=== PATIENT | female | born 1980 | race Caucasian/White ===

== ENCOUNTER 2017-03-28 18:33 | Emergency (ER) | payer OTHER ==
[~2017-03-28] VITALS: Ht 162.6 cm; Wt 84.8 kg
[~2017-03-28 18:33] MED LIST: FLUO40CA8 PO; PANT1TAB48 PO
[2017-03-28 18:45] VITALS: TEMP 37.1; Ht 162.6 cm; Wt 84.8 kg
[2017-03-28] MEDS ORDERED: NAPROXEN 250 MG TAB PO STA (19:58)
--- NOTE | 2017-03-28 20:03 | DIAGNOSTIC IMAGING REPORT ---
CHEST ONE VIEW PORTABLE CLINICAL HISTORY: Cough COMPARISON STUDY: 06/20/2016 FINDINGS: The cardiac and mediastinal contours are normal. There is no evidence of focal pulmonary consolidation. There is no evidence of failure. No pleural effusions are visualized.[ IMPRESSION: No active disease in the chest. Electronically signed by: Jared Betts M.D. 03/28/2017 8:02 PM Dictated Date/Time: 03/28/2017 8:01 PM
[2017-03-28] MEDS ORDERED: PRED50TA PO (20:26)
[2017-03-28] MEDS ORDERED: ALBUTEROL HFA 8 GM INHALER INH ONE (20:30)
[2017-03-28 20:54] VITALS: BP 140/96; PULSE 70; O2SAT 98
--- NOTE | 2017-03-29 01:32 | EMERGENCY ROOM VISIT NOTE ---
History Report prepared by Selin: Lavonne Jain Under the Supervision of: Dr. Braden Baires M.D. First contact with patient: 19:20 Chief Complaint: RASH Stated Complaint: RASH ON FACE AND BAD BACK PAIN History of Present Illness The patient is a 36 year old female who presents to the Emergency Room with complaints of a persistent rash to her face that began last evening. She currently rates her discomfort as a 9/10 in severity. The patient states that two days ago she developed upper and lower back pain and a cough. She states that 1 day ago she had diarrhea all day, but states that it has subsided. The patient states that last evening she went to [place] with her work. She states that she rode some small rides, but denies any extended exposure to the sun, hot tubs, or chemicals. The patient states that she is short of breath with exertion. She states that the rash feels like a burning pain and itchy. The patient denies using any new makeups, cleansers, or scrubs. 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 The patient denies ever having anything like this before. She states that she took Benadryl around 1200 without relief. Pt denies LOC, headache, fevers, chills, diaphoresis, visual changes, neck pain, chest pain, nausea, vomiting, abdominal pain, melena, hematochezia, urinary symptoms, numbness, weakness, lymphadenopathy, or other complaints. Source of History: patient Onset: last evening Position: other (face) Symptom Intensity: 9/10 Quality: burning, other (itchy rash) Timing: other (persistent) Associated Symptoms: + cough, + SOB, + back pain, + diarrhea Review of Systems See HPI for pertinent positives and negatives. A total of ten systems were reviewed and were otherwise negative. Past Medical & Surgical Medical Problems: (1) Back pain (2) Back pain (3) CALCULUS OF KIDNEY (4) delivery delivered (5) Chest pain (6) Chest pain (7) Deliveries by (8) Depression (9) ESOPHAGEAL REFLUX (10) Foot pain, right (11) Kidney stone (12) Left shoulder pain (13) Low back pain (14) Mid back pain (15) Migraine (16) MIGRAINE UNSPECIFIED W/O INTRACT MGRN W/O STATUS MIGRAINOSUS (17) Ovarian mass (18) Ovarian mass (19) Ovarian tumor (20) Right ovarian cyst (21) Right ovarian cyst (22) Right sided abdominal pain (23) Sinusitis (24) Sore throat (25) Vomiting Surgical Problems: (1) TUBAL LIGATION STATUS Family History Diabetes mellitus FHx: asthma FHx: cancer FHx: gallbladder disease FHx: heart disease FHx: lung disease Hypertension Kidney disease Kidney stones Social History Smoking Status: Current Every Day Smoker Alcohol Use: none Drug Use: none Marital Status: Housing Status: lives with family Occupation Status: employed Current/Historical Medications Scheduled Fluoxetine (Prozac), 40 MG PO DAILY Pantoprazole (Protonix), 40 MG PO DAILY Prednisone (Prednisone), 50 MG PO DAILY Allergies Coded Allergies: Iodinated Contrast Media (Verified Allergy, Mild, ITCHY, 03/28/17) Physical Exam Vital Signs Date Time Temp Pulse Resp B/P (MAP) Pulse Ox O2 Delivery O2 Flow Rate FiO2 03/28/17 20:54 70 18 140/96 98 03/28/17 18:45 37.1 91 18 121/87 99 Room Air Physical Exam GENERAL: Awake, alert, well-appearing, in no distress HENT: Normocephalic, atraumatic. Oropharynx unremarkable. EYES: Normal conjunctiva. Sclera non-icteric. NECK: Supple. No nuchal rigidity. FROM. No JVD. RESPIRATORY: Clear to auscultation. CARDIAC: Regular rate, normal rhythm. Extremities warm and well perfused. Pulses equal. ABDOMEN: Soft, non-distended. No tenderness to palpation. No rebound or guarding. No masses. RECTAL: Deferred. MUSCULOSKELETAL: Chest examination reveals no tenderness. The back is symmetrical on inspection without obvious abnormality. Diffuse paraspinal tenderness. There is no CVA tenderness to palpation. No joint edema. LOWER EXTREMITIES: Calves are equal size bilaterally and non-tender. No edema. No discoloration. NEURO: Normal sensorium. No sensory or motor deficits noted. SKIN: Small scattered papules on bilateral cheeks and forehead. No jaundice noted. Medical Decision & Procedures ER Provider Diagnostic Interpretation: X-ray: Per my interpretation, radiologist review. CHEST ONE VIEW PORTABLE CLINICAL HISTORY: Cough COMPARISON STUDY: 06/20/2016 FINDINGS: The cardiac and mediastinal contours are normal. There is no evidence of focal pulmonary consolidation. There is no evidence of failure. No pleural effusions are visualized.[ IMPRESSION: No active disease in the chest. Electronically signed by: Jared Betts M.D. 03/28/2017 8:02 PM Dictated Date/Time: 03/28/2017 8:01 PM Medications Administered Medications (Trade) Dose Ordered Sig/Mateo Route Start Time Stop Time Status Last Admin Dose Admin Naproxen (Naprosyn Tab) 500 mg NOW STAT PO 03/28/17 19:58 03/28/17 19:59 DC 03/28/17 20:21 500 MG Albuterol (Ventolin Hfa Inhaler) 2 puffs NOW ONCE INH 03/28/17 20:30 03/28/17 20:31 DC 03/28/17 20:51 2 PUFFS Prednisone (PredniSONE TAB) 60 mg NOW STAT PO 03/28/17 20:25 03/28/17 20:26 DC 03/28/17 20:50 60 MG ED Course 1942: The patient was evaluated in room B7. A complete history and physical exam was performed. 1957: Ordered Naproxen 500 mg PO. 2024: Ordered Prednisone 60 mg PO. 2029: Ordered Albuterol 2 puffs INH. 2030: I reevaluated the patient and she is resting comfortably. I discussed the exam findings with her and I discussed the treatment plan. She verbalized complete understanding and agreement. She is ready to go home. Medical Decision Medication Reconciliation: I attest that I have personally reviewed the patient' s current medication list Patient was found to have a slightly elevated blood pressure due to circumstances. I do not believe that the patient requires hypertension monitoring. Triage Nursing notes reviewed. The patient's presentation and history were concerning for rash, cough, diarrhea , and back pain. Etiologies such as contact dermatitis, allergic reaction, musculoskeletal, metabolic, infection, hypo/hyperglycemia, electrolyte abnormalities, cardiac sources, toxicologic, neurologic, as well as others were entertained. The patient had a non-focal examination and was doing well. Oropharynx examination does not reveal any significant findings. There is no edema. The patient did have a slight papular rash noted on the face. There were no significant hives. She had some tender musculature in her back. She notes coughing. A chest x-ray was performed and this was negative. The patient was given a dose of prednisone and Naprosyn. She was also given an albuterol MDI. The patient does smoke. She was counseled to stop. She is going to be reestablishing primary care as her insurance had run out. I discussed minimizing further testing as she is doing very well at this time in order to minimize any coughs or her. The patient felt comfortable with this. I encouraged her to minimize any exposures to her face. She will rest. She will use the prednisone. She can use Tylenol or ibuprofen as needed. If she has any problems she will come back to the emergency department.I gave my usual and customary discussion regarding this issue. She will follow-up with her primary as soon as she clarifies her insurance issues. I suspect that she had a mild allergic reaction or dermatitis causing the rash and should respond well to prednisone. The back issues seem to be musculoskeletal. There is no indication for antibiotics based upon her chest x-ray. I gave my usual and customary discussion regarding this issue. By the evaluation outlined above other emergent etiologies such as those listed in the differential, as well as others, were deemed relatively unlikely. The patient was educated about the findings as listed above. All questions were answered and the patient was pleased with the treatment. Return instructions were outlined and the patient was discharged in stable condition. The patient was referred to her primary care for follow-up for a recheck of the current condition. [place] Drug Monitoring Program Search Results: patient reviewed within database, no issues identified Impression Primary Impression: Rash Additional Impressions: Cough Back pain Scribe Attestation The scribe's documentation has been prepared under my direction and personally reviewed by me in its entirety. I confirm that the note above accurately reflects all work, treatment, procedures, and medical decision making performed by me. Departure Information Dispostion Home / Self-Care Prescriptions Prednisone (Prednisone) 50 Mg Tab 50 MG PO DAILY for 4 Days, #4 TAB Prov: Braden Baires MD 03/28/17 Forms HOME CARE DOCUMENTATION FORM, IMPORTANT VISIT INFORMATION, WORK / SCHOOL INSTRUCTIONS Patient Instructions My [facility] Additional Instructions Diphenhydramine: Use 25 to 50 mg every six hours for swelling, itching, or hives. This medication may cause sedation. Do not drive or perform dangerous activity if you are using this medication. Albuterol Inhaler: Take 2 puffs four times daily for five days, then as needed. Prednisone 50mg: Once daily until the prescription is finished. It is best to take this earlier in the day as some patients note occasional difficulty falling asleep when taken in the late evening. Acetaminophen(Tylenol) may be used for fever or pain. Use 1000mg every six hours as needed. Avoid using more than 4000mg in a 24 hour period. (AND/OR) Ibuprofen(Motrin, Advil) may be used for fever or pain. Use 600mg every six hours as needed. Take with food. Avoid using more than 2400mg in a 24 hour period. Do not use 2400mg per day for more than three consecutive days without physician direction. Prolonged inappropriate use can lead to stomach upset or ulcers. Rest and drink plenty of fluids. Avoid smoke/smoking, fumes, dust, or any triggers in the past that may have affected your breathing. Continue current medications. Return to the ER for chest pain, difficulty breathing, fevers, vomiting, worsening rash, blistering, severe back pain, numbness, tingling, loss of bowel or bladder control, worsening of your condition, or as needed. Follow up with a primary physician [facility] for a recheck of your current condition once your insurance issue clears. Problem Qualifiers
== END 2017-03-28 20:56 | disposition home or self-care (01) ==
LOC: C.EDB 18:34
DX: R21 Rash and other nonspecific skin eruption (principal); R05 Cough; M54.9 Dorsalgia, unspecified; K21.9 Gastro-esophageal reflux disease without esophagitis; F32.9 Major depressive disorder, single episode, unspecified; N83.201 Unspecified ovarian cyst, right side; F17.200 Nicotine dependence, unspecified, uncomplicated; Z87.442 Personal history of urinary calculi; Z86.19 Personal history of other infectious and parasitic diseases; Z98.51 Tubal ligation status; Z79.899 Other long term (current) drug therapy; Z91.041 Radiographic dye allergy status; Z83.3 Family history of diabetes mellitus; Z80.9 Family history of malignant neoplasm, unspecified; Z83.79 Family history of other diseases of the digestive system; Z82.49 Family history of ischemic heart disease and other diseases of the circulatory system; Z84.1 Family history of disorders of kidney and ureter

== ENCOUNTER 2017-09-12 18:27 | Emergency (ER) | payer SELFPAY ==
[~2017-09-12] VITALS: Ht 162.6 cm; Wt 86.0 kg
[~2017-09-12 18:27] MED LIST changes: -FLUO40CA8 PO; +PANT1TAB3 PO; -PANT1TAB48 PO
[2017-09-12 18:36] VITALS: TEMP 36.8; Ht 162.6 cm; Wt 86.0 kg
[2017-09-12] MEDS ORDERED: DiphenhydrAMINE HCL 50 MG/ML VIAL IV STA (19:52)
[2017-09-12] MEDS ORDERED: KETOROLAC TROMETHAMINE 30 MG/ML VIAL IV STA (19:52)
[2017-09-12] MEDS ORDERED: PROCHLORPERAZINE 5 MG/ML 2 ML VIAL IV STA (19:52)
[2017-09-12] MEDS ORDERED: DEXAMETHASONE INJ 10 MG in SYRINGE 0 ML IV ONE (20:00)
--- NOTE | 2017-09-12 20:31 | EMERGENCY ROOM VISIT NOTE ---
History Report prepared by Selin: Kenneth Barnard Under the Supervision of: Dr. Bart Valerio D.O. First contact with patient: 19:49 Chief Complaint: HEADACHE Stated Complaint: HEADACHE,PAIN IN NECK AND BACK History of Present Illness The patient is a 36 year old female who presents to the Emergency Room with complaints of a constant, severe headache beginning a week ago. The patient states she has a history of migraines. She reports she has tried Excedrin migraine, Tylenol, and ibuprofen for her discomfort, nothing is helping. The patient notes she has been nauseous, dizzy, and cold. She states her pain is in the front of her head and shoots to the back of her neck down through her back. The patient denies a runny nose and sorethroat. Source of History: patient Onset: week ago Position: head Symptom Intensity: severe Quality: ache Timing: constant Associated Symptoms: + neck pain, + nausea, + back pain, No sorethroat Note: Associated symptoms: dizziness and cold Denies: runny nose Review of Systems See HPI for pertinent positives & negatives. A total of 10 systems reviewed and were otherwise negative. Past Medical & Surgical Medical Problems: (1) Back pain (2) Back pain (3) CALCULUS OF KIDNEY (4) delivery delivered (5) Chest pain (6) Chest pain (7) Deliveries by (8) Depression (9) ESOPHAGEAL REFLUX (10) Foot pain, right (11) Kidney stone (12) Left shoulder pain (13) Low back pain (14) Mid back pain (15) Migraine (16) MIGRAINE UNSPECIFIED W/O INTRACT MGRN W/O STATUS MIGRAINOSUS (17) Ovarian mass (18) Ovarian mass (19) Ovarian tumor (20) Right ovarian cyst (21) Right ovarian cyst (22) Right sided abdominal pain (23) Sinusitis (24) Sore throat (25) Vomiting Surgical Problems: (1) TUBAL LIGATION STATUS Family History Diabetes mellitus FHx: asthma FHx: cancer FHx: gallbladder disease FHx: heart disease FHx: lung disease Hypertension Kidney disease Kidney stones Social History Smoking Status: Current Every Day Smoker Alcohol Use: none Drug Use: none Marital Status: Housing Status: lives with family Occupation Status: employed Current/Historical Medications Scheduled Fluoxetine (Prozac), 40 MG PO DAILY Pantoprazole (Protonix), 40 MG PO DAILY Allergies Coded Allergies: Iodinated Contrast Media (Verified Allergy, Mild, ITCHY, 03/28/17) Physical Exam Vital Signs Date Time Temp Pulse Resp B/P (MAP) Pulse Ox O2 Delivery O2 Flow Rate FiO2 09/12/17 18:36 36.8 83 20 128/84 98 Room Air Physical Exam CONSTITUTIONAL/VITAL SIGNS: Reviewed / noted above. GENERAL: Non-toxic in appearance. INTEGUMENTARY: Warm, dry, and [place]. HEAD: Normocephalic. EYES: without scleral icterus or trauma. ENT/OROPHARYNX: clear and moist. LYMPHADENOPATHY/NECK: Is supple without lymphadenopathy or meningismus. RESPIRATORY: Lungs clear and equal. CARDIOVASCULAR: Regular rate and rhythm. GI/ABDOMEN: Soft and nontender. No organomegaly or pulsatile mass. No rebound or guarding. Normal bowel sounds. EXTREMITIES: Warm and well perfused. BACK: No CVA tenderness. NEUROLOGICAL: Intact without focal deficits. PSYCHIATRIC: normal affect. MUSCULOSKELETAL: Normally developed with good muscle tone. Medical Decision & Procedures Medications Administered Medications (Trade) Dose Ordered Sig/Mateo Route Start Time Stop Time Status Last Admin Dose Admin Ketorolac Tromethamine (Toradol Inj) 30 mg NOW STAT IV 09/12/17 19:52 09/12/17 19:54 DC 09/12/17 20:19 30 MG Prochlorperazine Edisylate (Compazine Inj) 10 mg NOW STAT IV 09/12/17 19:52 09/12/17 19:54 DC 09/12/17 20:20 10 MG Diphenhydramine HCl (Benadryl Inj) 25 mg NOW STAT IV 09/12/17 19:52 09/12/17 19:55 DC 09/12/17 20:20 25 MG Dexamethasone Sodium Phosphate 10 mg/Syringe 2.5 ml @ 1 mls/min ONE ONCE IV 09/12/17 20:00 09/12/17 20:02 DC 09/12/17 20:20 1 MLS/MIN ED Course 1947: Previous medical records were reviewed. The patient was evaluated in room B07. A complete history and physical examination was performed. After the physical exam I discussed the results with the patient. I answered all of her question and discussed the treatment plan and discharge instructions. The patient agreed with the plan and will be discharged after she receives her medication. 1951: Ordered Benadryl Inj 25mg IV, Compazine inj 10mg IV, Toradol inj 30mg IV 1999: Ordered Dexamethasone Sodium Phosphate 10 mg/Syringe 2.5 ml @ 1mls/min IV Medical Decision Differential includes: Acute intracranial bleed, trauma, meningitis, encephalitis, increased intracranial pressure, mass or mass effect, facial or dental infection, temporal arteritis, CVA, TIA, acute hypertensive emergency, sinusitis, and carbon monoxide exposure. This is a 36-year-old female who presents to the ED with a chief complaint of a headache for the past week. It is frontal and posterior in nature. She reports a history of migraines and intermittent headaches. The patient states that she she tried Excedrin, Tylenol and Motrin without relief. She denies any upper respiratory symptoms or fevers. Denies any trauma. This is similar to prior headaches. Exam was unremarkable. The patient was treated with IV Benadryl, IV Decadron, IV Toradol and IV Compazine. She is felt to be stable for discharge and outpatient follow-up. Impression Primary Impression: Headache Scribe Attestation The scribe's documentation has been prepared under my direction and personally reviewed by me in its entirety. I confirm that the note above accurately reflects all work, treatment, procedures, and medical decision making performed by me. Departure Information Dispostion Home / Self-Care Referrals No Doctor, Assigned (PCP) Forms HOME CARE DOCUMENTATION FORM, IMPORTANT VISIT INFORMATION, Work Instructions Return To Work: 1 day Specific Date: 09/14/17 Patient Instructions My [facility] Additional Instructions Follow-up with your doctor for further care and evaluation in 1-2 days. Return to the emergency department for worsening or new symptoms or any concerns. You have been examined and treated today on an emergency basis only. This is not a substitute for, or an effort to provide, complete comprehensive medical care. It is impossible to recognize and treat all injuries or illnesses in a single emergency department visit. It is therefore important that you follow up closely with your doctor. Call as soon as possible for an appointment.
[2017-09-12 21:00] VITALS: BP 124/70; PULSE 74; O2SAT 97
[2017-09-12] MEDS ORDERED: FLUO40CA8 PO (22:32)
== END 2017-09-12 21:24 | disposition home or self-care (01) ==
LOC: C.EDB 18:28
DX: R51 Headache (principal); Z87.442 Personal history of urinary calculi; F32.9 Major depressive disorder, single episode, unspecified; K21.9 Gastro-esophageal reflux disease without esophagitis; Z83.3 Family history of diabetes mellitus; Z80.9 Family history of malignant neoplasm, unspecified; Z83.79 Family history of other diseases of the digestive system; Z82.49 Family history of ischemic heart disease and other diseases of the circulatory system; Z84.1 Family history of disorders of kidney and ureter; F17.210 Nicotine dependence, cigarettes, uncomplicated; Z79.899 Other long term (current) drug therapy

== ENCOUNTER 2017-10-12 22:08 | Emergency (ER) | payer OTHER ==
[~2017-10-12] VITALS: Ht 162.6 cm; Wt 87.8 kg
[~2017-10-12 22:08] MED LIST changes: +FLUO40CA8 PO
[2017-10-12 22:12] VITALS: TEMP 36.6; Ht 162.6 cm; Wt 87.8 kg
[2017-10-12] MEDS ORDERED: DiphenhydrAMINE HCL 50 MG/ML VIAL IV STA (23:16)
[2017-10-12] MEDS ORDERED: KETOROLAC TROMETHAMINE 30 MG/ML VIAL IV STA (23:16)
[2017-10-12] MEDS ORDERED: ONDANSETRON INJ 2 MG/ML 2 ML VIAL IV STA (23:16)
--- NOTE | 2017-10-12 23:22 | EMERGENCY ROOM VISIT NOTE ---
History Report prepared by Selin: Shahriar Martinez Under the Supervision of: Dr. Isiah Meneses M.D. First contact with patient: 23:11 Chief Complaint: ABDOMINAL PAIN Stated Complaint: PAIN IN STOMACH Nursing Triage Summary: generalized abodminal pain with vomiting. for the last hour. pain intesified after vomiting History of Present Illness The patient is a 36 year old female who presents to the Emergency Room with complaints of constant, sharp abdominal pain beginning 2 hours ago. The patient states that her vomit was brown this evening when she threw up, and that it tasted like acid. She notes that she did not eat anything tonight and that there is currently nothing in her stomach. She reports that her abdominal pain radiates to her back. The patient states that her symptoms might have been brought on by stress because she recently found out that her brother was put into correction. She notes that she has a history of kidney stones and has had a hysterectomy, but does not have any history of stomach ulcers. She reports that she does not pay attention to whether or not she has abdominal pain after she eats. She denies any rash, medication use, and alcohol use. Source of History: patient Onset: 2 hours ago Position: abdomen Quality: sharp Timing: constant Associated Symptoms: + vomiting (tasted like acid), + back pain, No rash Note: She also complains of high stress. Review of Systems See HPI for pertinent positives & negatives. A total of 10 systems reviewed and were otherwise negative. Past Medical & Surgical Medical Problems: (1) Back pain (2) Back pain (3) CALCULUS OF KIDNEY (4) delivery delivered (5) Chest pain (6) Chest pain (7) Deliveries by (8) Depression (9) ESOPHAGEAL REFLUX (10) Foot pain, right (11) Kidney stone (12) Left shoulder pain (13) Low back pain (14) Mid back pain (15) Migraine (16) MIGRAINE UNSPECIFIED W/O INTRACT MGRN W/O STATUS MIGRAINOSUS (17) Ovarian mass (18) Ovarian mass (19) Ovarian tumor (20) Right ovarian cyst (21) Right ovarian cyst (22) Right sided abdominal pain (23) Sinusitis (24) Sore throat (25) Vomiting Surgical Problems: (1) H/O: hysterectomy (2) TUBAL LIGATION STATUS Family History Diabetes mellitus FHx: asthma FHx: cancer FHx: gallbladder disease FHx: heart disease FHx: lung disease Hypertension Kidney disease Kidney stones Social History Smoking Status: Never Smoker Alcohol Use: none Drug Use: none Marital Status: Housing Status: lives with family Occupation Status: employed Current/Historical Medications Scheduled Fluoxetine (Prozac), 40 MG PO DAILY Pantoprazole (Protonix), 40 MG PO DAILY Allergies Coded Allergies: Iodinated Contrast Media (Verified Allergy, Mild, ITCHY, 10/13/17) Physical Exam Vital Signs Date Time Temp Pulse Resp B/P (MAP) Pulse Ox O2 Delivery O2 Flow Rate FiO2 10/13/17 02:00 80 17 130/77 96 10/13/17 00:28 78 16 145/82 100 Room Air 10/12/17 23:05 71 16 142/83 100 Room Air 10/12/17 22:12 36.6 75 20 143/100 97 Room Air Physical Exam GENERAL: Patient is anxious appearing and in mild distress. HEENT: No acute trauma, normocephalic atraumatic, mucous membranes moist, no nasal congestion, no scleral icterus. NECK: No stridor, no adenopathy, no meningismus, trachea is midline. LUNGS: No dyspnea. Clear to auscultation and equal bilaterally. No wheeze, no rhonchi. HEART: Regular rate and rhythm. No murmurs, rubs, gallops appreciated. ABDOMEN: Soft, bowel sounds positive, no masses appreciated, no peritonitis. Epigastric tenderness to palpation. BACK: No midline tenderness, no CVA tenderness EXTREMITIES: Normal motion all extremities, no cyanosis, no edema. NEUROLOGIC: Alert and oriented, no acute motor or sensory deficits, no focal weakness, cranial nerves grossly intact. SKIN: No rash, no jaundice, no diaphoresis. Medical Decision & Procedures ER Provider Diagnostic Interpretation: Radiology results and stated below per my review and radiologist interpretation: US RUQ: Mild sludge within the gallbladder. No shadowing gallstone seen. No evidence of GB wall thickening or pericholecystic fluid. Sonographic Bonds sign is negative. No biliary dilation. Liver, right kidney and visualized pancreas are unremarkable. No free fluid. Radiologist: Isiah Rosas MD. Laboratory Results 10/12/17 23:25 Red Blood Count 4.55, Mean Corpuscular Volume 91.0, Mean Corpuscular Hemoglobin 31.9, Mean Corpuscular Hemoglobin Concent 35.0, Mean Platelet Volume 11.6, Neutrophils (%) (Auto) 61.8, Lymphocytes (%) (Auto) 29.2, Monocytes (%) (Auto) 6.5, Eosinophils (%) (Auto) 2.1, Basophils (%) (Auto) 0.2, Neutrophils # (Auto) 6.51, Lymphocytes # (Auto) 3.08, Monocytes # (Auto) 0.69, Eosinophils # (Auto) 0.22, Basophils # (Auto) 0.02 10/12/17 23:25 Test 10/12/17 23:00 10/12/17 23:25 Urine Color YELLOW Urine Appearance CLEAR (CLEAR) Urine pH 5.0 (4.5-7.5) Urine Specific [place] 1.023 (1.000-1.030) Urine Protein NEG (NEG) Urine Glucose (UA) NEG (NEG) Urine Ketones NEG (NEG) Urine Occult Blood NEG (NEG) Urine Nitrite NEG (NEG) Urine Bilirubin NEG (NEG) Urine Urobilinogen NEG (NEG) Urine Leukocyte Esterase NEG (NEG) Urine WBC (Auto) 1-5 /hpf (0-5) Urine RBC (Auto) 5-10 /hpf (0-4) Urine Hyaline Casts (Auto) 0 /lpf (0-5) Urine Epithelial Cells (Auto) >30 /lpf (0-5) Urine Bacteria (Auto) NEG (NEG) White Blood Count 10.54 K/uL (4.8-10.8) Red Blood Count 4.55 M/uL (4.2-5.4) Hemoglobin 14.5 g/dL (12.0-16.0) Hematocrit 41.4 % (37-47) Mean Corpuscular Volume 91.0 fL (80-100) Mean Corpuscular Hemoglobin 31.9 pg (25-34) Mean Corpuscular Hemoglobin Concent 35.0 g/dl (32-36) Platelet Count 287 K/uL (130-400) Mean Platelet Volume 11.6 fL (7.4-10.4) Neutrophils (%) (Auto) 61.8 % Lymphocytes (%) (Auto) 29.2 % Monocytes (%) (Auto) 6.5 % Eosinophils (%) (Auto) 2.1 % Basophils (%) (Auto) 0.2 % Neutrophils # (Auto) 6.51 K/uL (1.4-6.5) Lymphocytes # (Auto) 3.08 K/uL (1.2-3.4) Monocytes # (Auto) 0.69 K/uL (0.11-0.59) Eosinophils # (Auto) 0.22 K/uL (0-0.5) Basophils # (Auto) 0.02 K/uL (0-0.2) RDW Standard Deviation 41.7 fL (36.4-46.3) RDW Coefficient of Variation 12.5 % (11.5-14.5) Immature Granulocyte % (Auto) 0.2 % Immature Granulocyte # (Auto) 0.02 K/uL (0.00-0.02) Anion Gap 8.0 mmol/L (3-11) Est Creatinine Clear Calc Drug Dose 91.7 ml/min Estimated GFR () 94.1 Estimated GFR (Non- 81.2 BUN/Creatinine Ratio 22.3 (10-20) Calcium Level 9.6 mg/dl (8.5-10.1) Total Bilirubin 0.2 mg/dl (0.2-1) Direct Bilirubin < 0.1 mg/dl (0-0.2) Aspartate Amino Transf (AST/SGOT) 14 U/L (15-37) Alanine Aminotransferase (ALT/SGPT) 32 U/L (12-78) Alkaline Phosphatase 92 U/L (45-117) Total Protein 7.7 gm/dl (6.4-8.2) Albumin 4.2 gm/dl (3.4-5.0) Lipase 216 U/L (73-393) Laboratory results as reviewed by me. Medications Administered Medications (Trade) Dose Ordered Sig/Mateo Route Start Time Stop Time Status Last Admin Dose Admin Diphenhydramine HCl (Benadryl Inj) 50 mg NOW STAT IV 10/12/17 23:16 10/12/17 23:18 DC 10/12/17 23:33 50 MG Ondansetron HCl (Zofran Inj) 4 mg NOW STAT IV 10/12/17 23:16 10/12/17 23:18 DC 10/12/17 23:33 4 MG Ketorolac Tromethamine (Toradol Inj) 30 mg NOW STAT IV 10/12/17 23:16 10/12/17 23:18 DC 10/12/17 23:33 30 MG Prochlorperazine Edisylate (Compazine Inj) 10 mg NOW STAT IV 10/13/17 00:32 10/13/17 00:33 DC 10/13/17 00:38 10 MG Sodium Chloride 500 ml @ 999 mls/hr Q31M STAT IV 10/13/17 00:32 10/13/17 01:02 DC 10/13/17 00:39 999 MLS/HR Al Hydroxide/Mg Hydroxide (Maalox Susp) 30 ml STK-MED ONCE .ROUTE 10/13/17 00:37 10/13/17 00:38 DC 10/13/17 00:39 30 ML Lidocaine HCl (Viscous Lidocaine 2% Soln) 20 ml STK-MED ONCE .ROUTE 10/13/17 00:37 10/13/17 00:38 DC 10/13/17 01:34 20 ML ED Course 2311: The patient was evaluated in room A12. A complete history and physical exam was performed. 0035: I reevaluated and updated the patient. She is still uncomfortable. We discussed CT, but the patient will prefer to try medication first. 0147: I rechecked the patient. She feels much better and would like to go home. 0214: Reevaluated the patient. Discussed results and discharge instructions: she verbalized understanding and agreement. The patient is ready for discharge. Medical Decision Differential: Cholecystitis, Gallbladder disfunction, Hepatic Disfunction, Gastritis/PUD, Pancreatitis, ACS, Aortic Pathology, amongst other pathologies entertained. 36 yr old female arrives with epigastric discomfort and nausea. Seems she had significant anxiety attack earlier in the evening which has improved but now with abdo pain. Abdomen is pretty benign but given description went ahead GB US which was unremarkable, as was lab work up. Pain controlled with above and feeling well. Declines CT at this time. Advised return 12-24 hours if returning pain or other concerns, earlier if worsening. Stable and feeling well at discharge. Medication Reconcilliation Current Medication List: was personally reviewed by me Blood Pressure Screening Patient's blood pressure: Normal blood pressure Blood pressure disposition: Did not require urgent referral Impression Primary Impression: Abdominal pain, acute, epigastric Scribe Attestation The scribe's documentation has been prepared under my direction and personally reviewed by me in its entirety. I confirm that the note above accurately reflects all work, treatment, procedures, and medical decision making performed by me. Departure Information Dispostion Home / Self-Care Referrals No Doctor, Assigned (PCP) Forms Call Back Authorization, HOME CARE DOCUMENTATION FORM, IMPORTANT VISIT INFORMATION Patient Instructions ED Epigastric Pain Patricia MCDANIEL [facility]
[2017-10-12 23:36] LABS: BASO % 0.2 %; BASO ABS # 0.02 K/uL (0-0.2); EOS % 2.1 %; EOS ABS # 0.22 K/uL (0-0.5); HEMATOCRIT 41.4 % (37-47); HEMOGLOBIN 14.5 g/dL (12.0-16.0); IG# 0.02 K/uL (0.00-0.02); LYMPH % 29.2 %; LYMPH ABS # 3.08 K/uL (1.2-3.4); MEAN CORPUSCULAR HEMOGLOBIN 31.9 pg (25-34); MEAN PLATELET VOLUME 11.6 fL (7.4-10.4); MONO % 6.5 %; MONO ABS # 0.69 K/uL (0.11-0.59); NEUT % 61.8 %; NEUT ABS # 6.51 K/uL (1.4-6.5); PLATELET COUNT 287 K/uL (130-400); RED CELL DISTRIBUTION WIDTH CV 12.5 % (11.5-14.5); RED CELL DISTRIBUTION WIDTH SD 41.7 fL (36.4-46.3); WHITE BLOOD COUNT 10.54 K/uL (4.8-10.8)
[2017-10-13 00:10] LABS: ALBUMIN 4.2 gm/dl (3.4-5.0); ALT/SGPT 32 U/L (12-78); AST/SGOT 14 U/L (15-37); BLOOD UREA NITROGEN 20 mg/dl (7-18); CALCIUM 9.6 mg/dl (8.5-10.1); CARBON DIOXIDE 22 mmol/L (21-32); CREATININE 0.91 mg/dl (0.60-1.20); GLUCOSE 89 mg/dl (70-99); LIPASE 216 U/L (73-393); POTASSIUM 3.8 mmol/L (3.5-5.1); SODIUM 137 mmol/L (136-145)
[2017-10-13 00:13] LABS: ALKALINE PHOSPHATASE 92 U/L (45-117); TOTAL PROTEIN 7.7 gm/dl (6.4-8.2)
[2017-10-13] MEDS ORDERED: GI COCKTAIL PO STA (00:32)
[2017-10-13] MEDS ORDERED: PROCHLORPERAZINE 5 MG/ML 2 ML VIAL IV STA (00:32)
[2017-10-13] MEDS ORDERED: SODIUM CHLORIDE 0.9% 500ML 500 ML IV STA (00:32)
[2017-10-13] MEDS ORDERED: ALUMINUM/MAGNESIUM SUSP 30 ML UDC ONE (00:37)
[2017-10-13] MEDS ORDERED: LIDOCAINE HCL 2% VISC SOLN 20 ML UDC ONE (00:37)
[2017-10-13 02:00] VITALS: BP 130/77; PULSE 80; O2SAT 96
--- NOTE | 2017-10-13 07:19 | DIAGNOSTIC IMAGING REPORT ---
ABDOMINAL ULTRASOUND, RIGHT UPPER QUADRANT HISTORY: Epigastric abdominal pain. COMPARISON: Right upper quadrant ultrasound December 03, [address] of the abdomen and pelvis November 04, 2015. FINDINGS: Liver is sonographically normal. There is no biliary ductal dilatation. No gallstones are identified. There is no gallbladder wall thickening. There is a small amount of sludge within the gallbladder. There was no sonographic Bonds's sign. Pancreatic body and head are normal. The pancreatic tail is obscured by overlying bowel gas. There is no right hydronephrosis. IMPRESSION: 1. No gallstones or biliary ductal dilatation. 2. Small amount of sludge within the gallbladder. No gallbladder wall thickening. Electronically signed by: Johnny Ness M.D. 10/13/2017 7:17 AM Dictated Date/Time: 10/13/2017 7:07 AM
== END 2017-10-13 02:00 | disposition home or self-care (01) ==
LOC: C.EDB 22:09 → C.EDA 10-13 02:00
DX: R10.13 Epigastric pain (principal); F32.9 Major depressive disorder, single episode, unspecified; K21.9 Gastro-esophageal reflux disease without esophagitis; Z83.3 Family history of diabetes mellitus; Z82.49 Family history of ischemic heart disease and other diseases of the circulatory system; Z82.5 Family history of asthma and other chronic lower respiratory diseases

== ENCOUNTER 2020-03-06 12:03 | Observation (INO) ==
[2020-03-06] MEDS ORDERED: SODIUM CHLORIDE 0.9% 1000ML 1,000 ML IV ONE (13:13)
[2020-03-06] MEDS ORDERED: SODIUM CHLORIDE 0.9% 1000ML 1,000 ML IV SCH (13:15)
--- NOTE | 2020-03-06 13:18 | Emergency Department Note ---
History of Present Illness General Chief complaint: Syncope Stated complaint: syncope, sent by urgent care Time Seen by Provider: 03/06/20 13:01 Source: patient Mode of arrival: ambulatory Limitations: no limitations History of Present Illness Maximum Pain Intensity: 5 This patient comes in after having lightheadedness dizziness and syncopal episodes. She had an episode in October of a similar complaint was seen in [place] had extensive work-up at hospital there was told that she had a inner ear infection. Starting 5 days ago the symptoms recurred she gets about 4 5 times a day she says the ears start burning and she feels dizzy and then she briefly passes out. No chest pain, shortness of breath, or palpitations. No nausea or vomiting. No focal numbness weakness. No fever or chills. Denies p regnancy as she has had a hysterectomy. No back pain. No dysuria or hematuria. No exposure to COVID or COVID-like symptoms known. Specifically denies fever or chills, change in taste or smell, cough or respiratory symptoms. She does have a mild left-sided headache this been persistent for 5 days and 6 out of 10. No blood or melena in her stool. She was seen in urgent care and they sent her here for further evaluation. Home Medications Home Medications Medication Instructions Recorded Confirmed Type azelastine 1 spray INTRANASAL BID 03/06/20 03/06/20 History dicyclomine 20 mg PO QID 03/06/20 03/06/20 History duloxetine 60 mg PO DAILY 03/06/20 03/06/20 History fluticasone propionate [Flonase 2 spray INTRANASAL DAILY 03/06/20 03/06/20 History Allergy Relief] loratadine [Claritin] 10 mg PO DAILY 03/06/20 03/06/20 History montelukast 10 mg PO DAILY 03/06/20 03/06/20 History nortriptyline 10 mg PO HS 03/06/20 03/06/20 History pantoprazole 40 mg PO DAILY 03/06/20 03/06/20 History trazodone 100 mg PO HS 03/06/20 03/06/20 History Allergies Allergy/AdvReac Type Severity Reaction Status Date / Time Iodinated Contrast Media Allergy Mild Hives Verified 03/06/20 14:22 Past Med/Surg History Medical History Anxiety Depression Kidney stones Migraine headache Ovarian tumor (Resolved 04/28/14) Tobacco use disorder Surgical History Delivery by section H/O: hysterectomy (Inactive) Right ovarian cyst (Resolved) Family History Other Myocardial infarction Social History Preferred Language: Tajik Communication Ability: Effective Visual Impairment: No Limitations Hearing Ability: Normal Digital Media Buyer Required: No Beliefs That Will Affect Care: None Current Living Situation: Family Other Information That Helps Us Care for You: No Feels Safe at Home: Yes Safety Concerns: Feels Safe At This Time Smoking Status: Current every day smoker Tobacco Type: cigarettes ; Do You Dip or Chew Tobacco: No ; Tobacco Cessation Education Requested by Patient: No Hx Alcohol Use: No Hx Substance Use: No Review of Systems A total of 10 systems reviewed and were otherwise negative Physical Exam Vital Signs Vital Signs - 24 hr 03/06/20 12:05 03/06/20 13:43 03/06/20 13:49 Temperature 37 C Temperature Source Oral Pulse Rate - Lying Pulse Rate - Sitting Pulse Rate - Standing Pulse Rate 90 Pulse Rate [Finger] 74 Pulse Rate from SpO2 Sensor 73 Pulse Rhythm Regular Pulse Strength Normal Respiratory Rate 18 18 Respiratory Effort / Characteristics Non-Labored Spontaneous Non-Labored Spontaneous Respiratory Depth Normal Normal Respiratory Pattern Regular Regular Blood Pressure - Lying Blood Pressure - Sitting Blood Pressure- Standing Blood Pressure 133/86 124/84 Blood Pressure [Left Arm] 124/84 Blood Pressure Mean 101 98 Blood Pressure Mean [Left Arm] 97 Blood Pressure Position Sitting Blood Pressure Position [Left Arm] Sitting Pulse Oximetry 100 99 99 Oxygen Delivery Method Room Air Room Air Sepsis Recent Fever Within 48 Hours No Sepsis New/Unexplained Change in Mental Status No Sepsis Action Taken by Nursing No Action Required 03/06/20 13:50 03/06/20 14:00 03/06/20 14:10 Temperature Temperature Source Pulse Rate - Lying Pulse Rate - Sitting Pulse Rate - Standing Pulse Rate Pulse Rate [Finger] Pulse Rate from SpO2 Sensor 73 71 70 Pulse Rhythm Pulse Strength Respiratory Rate Respiratory Effort / Characteristics Respiratory Depth Respiratory Pattern Blood Pressure - Lying Blood Pressure - Sitting Blood Pressure- Standing Blood Pressure Blood Pressure [Left Arm] Blood Pressure Mean Blood Pressure Mean [Left Arm] Blood Pressure Position Blood Pressure Position [Left Arm] Pulse Oximetry 100 100 100 Oxygen Delivery Method Sepsis Recent Fever Within 48 Hours Sepsis New/Unexplained Change in Mental Status Sepsis Action Taken by Nursing 03/06/20 14:20 03/06/20 14:26 03/06/20 14:27 Temperature Temperature Source Pulse Rate - Lying 64 Pulse Rate - Sitting 71 Pulse Rate - Standing 72 Pulse Rate Pulse Rate [Finger] Pulse Rate from SpO2 Sensor 71 63 Pulse Rhythm Pulse Strength Respiratory Rate Respiratory Effort / Characteristics Respiratory Depth Respiratory Pattern Blood Pressure - Lying 147/85 H Blood Pressure - Sitting 132/102 H Blood Pressure- Standing 123/90 Blood Pressure 147/85 H Blood Pressure [Left Arm] Blood Pressure Mean 95 Blood Pressure Mean [Left Arm] Blood Pressure Position Blood Pressure Position [Left Arm] Pulse Oximetry 100 100 Oxygen Delivery Method Sepsis Recent Fever Within 48 Hours Sepsis New/Unexplained Change in Mental Status Sepsis Action Taken by Nursing 03/06/20 14:28 03/06/20 14:29 03/06/20 14:30 Temperature Temperature Source Pulse Rate - Lying Pulse Rate - Sitting Pulse Rate - Standing Pulse Rate Pulse Rate [Finger] Pulse Rate from SpO2 Sensor 74 73 72 Pulse Rhythm Pulse Strength Respiratory Rate Respiratory Effort / Characteristics Respiratory Depth Respiratory Pattern Blood Pressure - Lying Blood Pressure - Sitting Blood Pressure- Standing Blood Pressure 123/90 Blood Pressure [Left Arm] Blood Pressure Mean 101 Blood Pressure Mean [Left Arm] Blood Pressure Position Blood Pressure Position [Left Arm] Pulse Oximetry 100 100 100 Oxygen Delivery Method Sepsis Recent Fever Within 48 Hours Sepsis New/Unexplained Change in Mental Status Sepsis Action Taken by Nursing 03/06/20 15:16 03/06/20 15:18 03/06/20 15:19 Temperature Temperature Source Pulse Rate - Lying Pulse Rate - Sitting Pulse Rate - Standing Pulse Rate 71 69 69 Pulse Rate [Finger] Pulse Rate from SpO2 Sensor 71 69 70 Pulse Rhythm Pulse Strength Respiratory Rate 13 15 20 Respiratory Effort / Characteristics Respiratory Depth Respiratory Pattern Blood Pressure - Lying Blood Pressure - Sitting Blood Pressure- Standing Blood Pressure Blood Pressure [Left Arm] Blood Pressure Mean Blood Pressure Mean [Left Arm] Blood Pressure Position Blood Pressure Position [Left Arm] Pulse Oximetry 99 100 100 Oxygen Delivery Method Sepsis Recent Fever Within 48 Hours Sepsis New/Unexplained Change in Mental Status Sepsis Action Taken by Nursing 03/06/20 15:20 03/06/20 15:30 03/06/20 15:40 Temperature Temperature Source Pulse Rate - Lying Pulse Rate - Sitting Pulse Rate - Standing Pulse Rate 66 74 60 Pulse Rate [Finger] Pulse Rate from SpO2 Sensor 67 70 60 Pulse Rhythm Pulse Strength Respiratory Rate 15 28 H 13 Respiratory Effort / Characteristics Respiratory Depth Respiratory Pattern Blood Pressure - Lying Blood Pressure - Sitting Blood Pressure- Standing Blood Pressure Blood Pressure [Left Arm] Blood Pressure Mean Blood Pressure Mean [Left Arm] Blood Pressure Position Blood Pressure Position [Left Arm] Pulse Oximetry 100 100 100 Oxygen Delivery Method Sepsis Recent Fever Within 48 Hours Sepsis New/Unexplained Change in Mental Status Sepsis Action Taken by Nursing General: Well developed well nourished not ill-appearing nontoxic young female who appears in no acute distress, breathing comfortably on room air. Normal speech. Alert and orient x3 HEENT: Normal cephalic atraumatic. Pupils are equal round and reactive to light. Extraocular movements are intact. Oropharynx is pink with moist mucous membranes. No swelling of the mouth lips or tongue. Normal tympanic membranes bilaterally without effusions. Normal ear canals bilaterally Neck: Supple with a midline trachea. No meningeal signs or stiffness, no JVD or bruits. No Stridor. Chest: Clear to auscultation bilaterally. No wheezes or rhonchi. No increased work of breathing. Heart: Regular rate and rhythm without murmurs or gallops. Abdomen: Soft nontender, nondistended without rebound guarding or rigidity. Extremities: No cyanosis clubbing or edema. No calf tenderness or assymetry Spine/Back. Non tender to palpation. No CVA tenderness Skin: Good turgor without rashes. Neurologic exam: Cranial nerves two through 12 are intact. Motor and sensation are intact and symmetrical throughout. [id number] intact. No pronator drift. No tremor. Course Administered Medications Acetaminophen (Tylenol) 650 mg PO Q4H PRN PRN Reason: Pain or Fever Stop: 04/05/20 16:54 Last Admin: 03/06/20 18:13 Dose: 650 mg Documented by: [id number] Dicyclomine HCl (Bentyl) 20 mg PO QID NORA Stop: 04/05/20 16:59 Last Admin: 03/06/20 19:56 Dose: 20 mg Documented by: [id number] Admin: 03/06/20 18:13 Dose: 20 mg Documented by: [id number] Nicotine (Nicoderm Cq) 7 mg TD QAM NORA Stop: 04/05/20 16:54 Last Admin: 03/06/20 18:12 Dose: 7 mg Documented by: [id number] Trazodone HCl (Desyrel) 100 mg PO HS NORA Stop: 04/05/20 20:59 Last Admin: 03/06/20 19:56 Dose: 100 mg Documented by: [id number] Discontinued Medications Sodium Chloride (Nss 1000ml) 1,000 mls @ 999 mls/hr IV .Q1H1M NORA Stop: 03/06/20 14:15 Last Infusion: 03/06/20 16:41 Dose: 0 mls/hr Documented by: [id number] Admin: 03/06/20 13:50 Dose: 999 mls/hr Documented by: [id number] Sodium Chloride (Nss 1000ml) 1,000 mls @ 999 mls/hr IV .Q1H1M ONE Stop: 03/06/20 14:13 Last Infusion: 03/06/20 14:58 Dose: 0 mls/hr Documented by: [id number] Admin: 03/06/20 13:50 Dose: 999 mls/hr Documented by: [id number] Ketorolac Tromethamine (Toradol) 30 mg IV NOW ONE Stop: 03/06/20 14:21 Last Admin: 03/06/20 14:31 Dose: 30 mg Documented by: [id number] Medical Decision Making Differential Diagnosis Syncope, arrhythmia, electrolyte or metabolic abnormality, dehydration, infection, COVID, intracranial process, vascular disease Medical Records Attestation: I reviewed the patient's medical records. Laboratory Data Attestation: I reviewed the patient's lab results. Result diagrams: 03/06/20 13:20 03/06/20 13:20 Lab Results 03/06/20 03/06/20 03/06/20 Range/Units 13:20 13:20 14:30 WBC 8.25 (4.8-10.8) K/uL RBC 4.76 (4.2-5.4) M/uL Hgb 14.2 (12.0-16.0) g/dL Hct 44.9 (37-47) % MCV 94.3 (80-100) fL MCH 29.8 (25-34) pg MCHC 31.6 L (32-36) g/dL RDW Std Deviation 46.2 (36.4-46.3) fL RDW Coeff of Emilia 13.4 (11.5-14.5) % Plt Count 297 (130-400) K/uL MPV 11.3 H (7.4-10.4) fL Immature Gran % (Auto) 0.4 % Neut % (Auto) 54.1 % Lymph % (Auto) 30.8 % [place] % (Auto) 7.8 % Eos % (Auto) 6.2 % Baso % (Auto) 0.7 % Immature Gran # (Auto) 0.03 H (0.00-0.02) K/uL Neut # (Auto) 4.47 (1.4-6.5) K/uL Lymph # (Auto) 2.54 (1.2-3.4) K/uL [place] # (Auto) 0.64 H (0.11-0.59) K/uL Eos # (Auto) 0.51 H (0-0.5) K/uL Baso # (Auto) 0.06 (0-0.2) K/uL Sodium 139 (136-145) mmol/L Potassium 4.0 (3.5-5.1) mmol/L Chloride 109 H (98-107) mmol/L Carbon Dioxide 24 (21-32) mmol/L Anion Gap 6.0 (3-11) BUN 14 (7-18) mg/dl Creatinine 0.97 (0.6-1.2) mg/dl Est Cr Clr Drug Dosing 79.1 ml/min Est GFR ( Amer) 85.3 Est GFR (Non-Af Amer) 73.6 BUN/Creatinine Ratio 14.3 (10-20) Glucose 88 (70-99) mg/dl Calcium 9.5 (8.5-10.1) mg/dl Magnesium 2.0 (1.8-2.4) mg/dl Total Bilirubin 0.2 (0.2-1) mg/dl AST 15 (15-37) U/L ALT 30 (12-78) U/L Alkaline Phosphatase 108 (45-117) U/L Troponin I < 0.015 (0-0.045) ng/ml Total Protein 7.6 (6.4-8.2) gm/dl Albumin 3.8 (3.4-5.0) gm/dl Globulin 3.8 (2.5-4.0) gm/dl Albumin/Globulin Ratio 1.0 (0.9-2) TSH 0.946 (0.300-4.500) uIu/ml Urine Color Yellow Urine Appearance Clear (Clear) Urine pH 8.5 H (4.5-7.5) Ur Specific [place] 1.019 (1.000-1.030) Urine Protein Negative (Negative) Urine Glucose (UA) Negative (Negative) Urine Ketones Negative (Negative) Urine Blood Negative (Negative) Urine Nitrite Negative (Negative) Urine Bilirubin Negative (Negative) Urine Urobilinogen Negative (Negative) Ur Leukocyte Esterase Negative (Negative) Imaging Data Radiologist's Impression: Head CT IMPRESSION: No acute intracranial findings. Chest Xray IMPRESSION: Negative chest. ECG Data Attestation: I personally reviewed and interpreted this ECG as follows: Indication: + syncope Rate (beats per minute): 74 Rhythm: + normal sinus ECG Intervals/blocks: + Normal QRS, + Normal QT and + Normal ND ECG ST segments: + Nonspecific ST abnormalities (Subtle anterior ST elevations in V1 and V2 which were present on previous and concerning for possible Brugada syndrome) ECG Findings: no PACs and no PVCs Comparison ECG Date: from (06/20/2016) Blood Pressure Blood Pressure Findings: Normal blood pressure MDM Narrative This patient comes in as described above. She has had lightheadedness and dizziness and syncopal episodes for the last 5 days she also has a moderate headache on the left. She looks well. she is afebrile. she has had no trauma she has a normal neurologic exam. Extensive work-up was done she was placed on a tool grinder operator external. EKG, multiple blood testing was obtained and she was hydrated with a 1 L IV normal saline fluid bolus. She is not as she has had a hysterectomy previously. CAT scan her head was also obtained and it was unremarkable. She has no acute electrolyte or metabolic abnormalities. She has remained stable and asymptomatic while in the emergency department. Her work-up was unremarkable with exception of her EKG has some nonspecific ST abnormalities anteriorly but given her history and concern for possible Brugada syndrome which could cause an arrhythmia. Looking back through her old EKGs it was more prominent even in the past and the millstone cleaner had commented on possible channel myopathy. She tells me she is never been worked up. Given her all multiple episodes of syncope I did consult Dr. Brian from cardiology, who saw her in the ER, and feels that medicine should admit her for observation and further evaluation. [facility]. Continuous cardiac monitoring. An order was placed for continuous cardiac monitoring. The patient was noted to have a pulse of 67 and be in normal sinus rhythm Impression & Plan Syncope, H/O: hysterectomy, Abnormal ECG, Brugada syndrome Discharge Plan Visit Data *Final* Discharge Date/Time: 03/06/20 16:30 Chief Complaint: Syncope Stated Complaint: syncope, sent by urgent care ED Provider: Fredo Knight Discharge Problem: Syncope, H/O: hysterectomy, Abnormal ECG, Brugada syndrome Patient Disposition: Admitted As Inpatient Discharge Instructions Interventions: ED Discharge Assessment Last Done: 03/06/20 16:30 Discharge Problem: Syncope Qualifiers: Syncope type: unspecified Qualified Code(s): R55 - Syncope and collapse
[2020-03-06 13:30] LABS: Basophils # (auto) 0.06 K/uL (0-0.2); Basophils % (auto) 0.7 %; Eosinophils # (auto) 0.51 K/uL (0-0.5); Eosinophils % (auto) 6.2 %; Hematocrit (blood only) 44.9 % (37-47); Hemoglobin 14.2 g/dL (12.0-16.0); Immature Granulocytes # (auto) 0.03 K/uL (0.00-0.02); Immature Granulocytes % (auto) 0.4 %; Lymphocytes # (auto) 2.54 K/uL (1.2-3.4); Lymphocytes % (auto) 30.8 %; Mean Corpuscular Hemoglobin 29.8 pg (25-34); Mean Corpuscular Hgb Conc 31.6 g/dL (32-36); Mean Corpuscular Volume 94.3 fL (80-100); Mean Platelet Volume 11.3 fL (7.4-10.4); Monocytes # (auto) 0.64 K/uL (0.11-0.59); Monocytes % (auto) 7.8 %; Neutrophils # (auto) 4.47 K/uL (1.4-6.5); Neutrophils % (auto) 54.1 %; Platelet Count 297 K/uL (130-400); RDW Coefficient of Variation 13.4 % (11.5-14.5); RDW Standard Deviation 46.2 fL (36.4-46.3); Red Blood Count 4.76 M/uL (4.2-5.4); White Blood Count 8.25 K/uL (4.8-10.8)
[2020-03-06 13:45] LABS: Alanine Aminotransferase 30 U/L (12-78); Albumin Level 3.8 gm/dl (3.4-5.0); Aspartate Aminotransferase 15 U/L (15-37); BUN Creatinine Ratio 14.3 (10-20); Blood Urea Nitrogen 14 mg/dl (7-18); Calcium 9.5 mg/dl (8.5-10.1); Carbon Dioxide 24 mmol/L (21-32); Chloride 109 mmol/L (98-107); Creatinine Clr Calc Pharmacy 79.1 ml/min; Est GFR (African American) 85.3; Est GFR (Non-African American) 73.6; Glucose 88 mg/dl (70-99); Sodium 139 mmol/L (136-145)
--- NOTE | 2020-03-06 13:46 | XRay Report ---
XR chest 1V portable CLINICAL HISTORY: syncope dyspnea COMPARISON STUDY: 11/16/2018 FINDINGS: The bones soft tissues and hemidiaphragms are normal. The cardiomediastinal silhouette is n ormal. The lungs are clear. The pulmonary vasculature is normal. IMPRESSION: Negative chest. ACT 112: Negative or not required by law. The above report was generated using voice recognition software. It may contain grammatical, syntax or spelling errors. Electronically signed by: Darci Gutierrez M.D. 03/06/2020 1:45 PM
[2020-03-06 14:01] LABS: Alkaline Phosphatase 108 U/L (45-117); Bilirubin,Total 0.2 mg/dl (0.2-1); Globulin 3.8 gm/dl (2.5-4.0); Thyroid Stimulating Hormone 0.946 uIu/ml (0.300-4.500); Total Protein 7.6 gm/dl (6.4-8.2); Troponin I < 0.015 ng/ml (0-0.045)
[2020-03-06] MEDS ORDERED: KETOROLAC 30 MG/ML VIAL IV ONE (14:20)
[2020-03-06 14:59] LABS: Appearance Urine Clear (Clear); Bilirubin Urine Negative (Negative); Blood Urine Negative (Negative); Color Urine Yellow; Glucose Urine UA Negative (Negative); Ketones Urine Negative (Negative); Leukocyte Esterase Urine Negative (Negative); Nitrite Urine Negative (Negative); Protein Urine Negative (Negative); Specific Gravity Urine 1.019 (1.000-1.030); Urobilinogen Urine Negative (Negative); pH Urine 8.5 (4.5-7.5)
--- NOTE | 2020-03-06 15:16 | CT Scan Report ---
CT OF THE HEAD WITHOUT CONTRAST CLINICAL HISTORY: syncope COMPARISON STUDY: Head CT September 02, 2015. CT DOSE: 638.56 mGycm TECHNIQUE: Helical axial images of the head were obtained without IV contrast. Automated exposure con trol was utilized for the study. A dose lowering technique was utilized adhering to the principles o f ALARA. FINDINGS: No acute intracranial hemorrhage, midline shift or mass effect is present. The ventricular system is unremarkable. The basilar cisterns are patent. No extra-axial collections are present. Ther e are no findings to suggest acute dural sinus thrombosis or acute territorial infarct. No significan t calvarial abnormalities are present. Visualized portions of the sinuses and mastoid air cells are c lear. IMPRESSION: No acute intracranial findings. ACT 112: Negative or not required by law. Electronically signed by: Johnny Ness M.D. 03/06/2020 3:15 PM
--- NOTE | 2020-03-06 15:46 | History & Physical Report ---
Date of Service March 06, 2020 Assessment & Plan (1) Recurrent syncope: (2) Abnormal EKG: This is a 39-year-old F with PMH of MDD, chronic cervical and back pain, history of migraine headache, IBS and other medical problems listed below who presents with recurrent syncopal episodes x 5 days. -Endorsing 5 days of multiple syncopal episodes which initially started in October -Concern for underlying cardiac cause with previous EKGs showing a possible Brugada pattern -Evaluated by Dr. Brian who feels that today's EKG is less remarkable but due to frequent syncope, should be observed on telemetry overnight with OP follow-up with tele monitoring and likely genetic testing as well -2D echo to evaluate for any structural abnormalities -Also discussed multiple psych medications with psych LEONARD Hayes in case side effects are contributing-- plan to hold newest psych medication, Nortriptyline, to see if contributing to recurrent syncope (3) Migraine headache: History of persistent migraine headaches for years -CT head from today without intracranial abnormality -States that sleep helps relieve symptoms. Was given Toradol in ED without relief. Will add Tylenol to regimen (4) Anxiety: (5) Depression: Continue duloxetine and trazodone HS for sleep (6) Tobacco use disorder: Counseled on cessation. Nicotine patch ordered DVT Ppx: SCDs Code status: FULL PCP: Azael Castro Dispo: Observation in PCU. Plan to return home once medically stable. Patient seen in collaboration with Dr. Guerra. Please see addendum. History of Present Illness Chief Complaint: Recurrent syncopal episodes Primary Care Provider: Nidhi Castro, DO This is a 39-year-old F with PMH of MDD, chronic cervical and back pain, history of migraine headache, IBS and other medical problems listed below who presents with recurrent syncopal episodes x 5 days. Patient states that episodes began in October at which point she is evaluated at a hospital in [place] and told that it was an issue with her inner ear. Was told to follow-up when she returned to [place], but syncopal episodes resolved until 5 days ago. Patient states she can feel episode coming on due to headache, ringing in her ears and palpitations. She is able to sit down and then states eyes roll back and she is unresponsive for a few seconds, per family who has witnessed episodes. Endorses 4-5 these episodes daily with most recent one occurring prior to arrival. Denies any tongue biting, bowel or bladder incontinence during episode. No chest pain or shortness of breath. Was recently started on nortriptyline 1 month ago for IBS. Currently experiencing throbbing headache, which she admits to getting frequently and resolves with sleep. Does not take any medication for these besides Excedrin. Denies any fever, chills, lightheadedness, chest pain, shortness of breath, nausea, vomiting, abdominal pain, dysuria, diarrhea or constipation. Allergies Allergy/AdvReac Type Severity Reaction Status Date / Time Iodinated Contrast Media Allergy Mild Hives Verified 03/06/20 14:22 Home Medications Home Medications Medication Instructions Recorded Confirmed Type azelastine 1 spray INTRANASAL BID 03/06/20 03/06/20 History dicyclomine 20 mg PO QID 03/06/20 03/06/20 History duloxetine 60 mg PO DAILY 03/06/20 03/06/20 History fluticasone propionate [Flonase 2 spray INTRANASAL DAILY 03/06/20 03/06/20 History Allergy Relief] loratadine [Claritin] 10 mg PO DAILY 03/06/20 03/06/20 History montelukast 10 mg PO DAILY 03/06/20 03/06/20 History nortriptyline 10 mg PO HS 03/06/20 03/06/20 History pantoprazole 40 mg PO DAILY 03/06/20 03/06/20 History trazodone 100 mg PO HS 03/06/20 03/06/20 History Past Med/Surg History Medical History Anxiety Depression Kidney stones Migraine headache Ovarian tumor (Resolved 04/28/14) Tobacco use disorder Surgical History Delivery by section H/O: hysterectomy (Inactive) Right ovarian cyst (Resolved) Family History Other Myocardial infarction Social History Preferred Language: Macedonian Communication Ability: Effective Visual Impairment: No Limitations Hearing Ability: Normal Chore Worker Required: No Beliefs That Will Affect Care: None Current Living Situation: Family Other Information That Helps Us Care for You: No Feels Safe at Home: Yes Safety Concerns: Feels Safe At This Time Smoking Status: Current every day smoker Tobacco Type: cigarettes ; Do You Dip or Chew Tobacco: No ; Tobacco Cessation Education Requested by Patient: No Hx Alcohol Use: No Hx Substance Use: No Review of Systems Review of Systems: At least ten systems reviewed and negative except as noted in the HPI. Physical Exam Physical Exam: General Appearance: WD/WN, vitals as above, NAD, sitting up in bed, pleasant, conversing easily Head: normocephalic, atraumatic Eyes: normal inspection, PERRL, conjunctivae normal, anicteric sclerae ENT: external ear and nose normal, oropharynx normal Neck: trachea midline, no thyromegaly normal visual inspection Respiratory: normal respiratory effort, lungs clear to auscultation, no wheeze, rales, rhonchi. Normal insp/exp effort, no accessory muscle use Cardiovascular: regular rate, rhythm, no murmur appreciated, normal peripheral pulses. Vessels: no JVD or carotid bruit Chest: normal inspection of chest Abdomen/GI: normal bowel sounds, soft, nontender, no hepatosplenomegaly Extremities/Musculoskeletal: no cyanosis or clubbing, extremities motor strength 5/5 Neurologic: PERRL, EOMI, accommodation nl, no face palsy, no dysarthria, CN's II-XI intact bilaterally and moves all extremities Psychiatric: A+Ox3, euthymic affect Skin: no rashes, normal color, warm/dry Results & Data Results & Data ([facility]) Vital Signs (Past 12 Hours) Vital Signs Temp Pulse Pulse Resp BP BP Pulse Ox 03/06/20 15:18 69 15 100 03/06/20 15:16 71 13 99 03/06/20 14:30 100 03/06/20 14:29 123/90 100 03/06/20 14:28 100 03/06/20 14:26 147/85 H 100 03/06/20 14:20 100 03/06/20 14:10 100 03/06/20 14:00 100 03/06/20 13:50 100 03/06/20 13:49 124/84 99 03/06/20 13:43 74 18 124/84 99 03/06/20 12:05 37 C 90 18 133/86 100 Laboratory Results Short CBC 03/06/20 Range/Units 13:20 WBC 8.25 (4.8-10.8) K/uL Hgb 14.2 (12.0-16.0) g/dL Hct 44.9 (37-47) % Plt Count 297 (130-400) K/uL BMP 03/06/20 13:20 Sodium 139 Potassium 4.0 Chloride 109 H Carbon Dioxide 24 BUN 14 Creatinine 0.97 Glucose 88 Calcium 9.5 Cardiac Enzymes 03/06/20 Range/Units 13:20 Troponin I < 0.015 (0-0.045) ng/ml Liver Function 03/06/20 Range/Units 13:20 Total Bilirubin 0.2 (0.2-1) mg/dl AST 15 (15-37) U/L ALT 30 (12-78) U/L Alkaline Phosphatase 108 (45-117) U/L Albumin 3.8 (3.4-5.0) gm/dl Urine 03/06/20 Range/Units 14:30 Urine Color Yellow Urine Appearance Clear (Clear) Urine pH 8.5 H (4.5-7.5) Ur Specific [place] 1.019 (1.000-1.030) Urine Protein Negative (Negative) Urine Glucose (UA) Negative (Negative) Diagnostic Findings CT head: IMPRESSION: No acute intracranial findings. CXR: IMPRESSION: Negative chest. Supervising Physician Co-Signing Physician Notes Patient is a 39-year-old female with history of major depressive disorder, migraine, IBS and other medical problems presents with history of recurrent syncopal episodes lasting for 3 to 4 seconds for the past 5 days. Patient also states having headaches associated with ringing sensation in ears and palpitati ons. Is positive for orthostatics while in ED. Previous EKGs more concerning for Brugada syndrome. Although current EKG less indicative of Brugada. On exam patient is well-built and nourished, normocephalic atraumatic, lungs are clear to auscultation, normal breath sounds, S1-S2, no murmur, abdomen soft nontender, normal bowel sounds, no pedal edema, grossly no focal neurological deficits. Patient is admitted for management of recurrent syncope, Orthostatic hypotension. Monitor in telemetry for any arrhythmias. Echo to rule out any structural abnormalities. Psychiatric medications could be contributing to orthostatic hypotension. Discussed with psychiatry and agree with holding nortriptyline for now. Will eventually need event monitor as outpatient. Also may need evaluation by ENT and/or neurology to rule out other causes of syncope. I personally reviewed the record. Patient is interviewed and examined at bedside. Patient's care is coordinated with Jerilyn Aguilar PA-C. Please refer to the documentation above for details of patient's presentation and for discussion of other issues.
[2020-03-06] MEDS ORDERED: POLYETHYLENE (MIRALAX) 17 GM PACK PO PRN (16:55)
[2020-03-06] MEDS ORDERED: ACETAMINOPHEN 325 MG TAB PO PRN (16:55)
--- NOTE | 2020-03-06 17:01 | Cardiology Consultation ---
Date of Consultation March 06, 2020 Assessment & Plan (1) Syncope: (2) Abnormal EKG: Previous EKGs have shown a possible Brugada pattern, however, today's is less remarkable. Given her frequent syncope and this finding I do believe would be arizmendi to monitor on telemetry at least overnight and obtain a 2D echocardiogram to evaluate for any structural abnormalities. She will then require outpatient follow-up including outpatient telemetry monitoring and likely genetic testing as well. We will hold off on making any medication changes at this time. History of Present Illness Reason for Consultation: Syncope with abnormal EKG Requesting Physician: Dr. Knight Attending Physician: Jayant Guerra MD History of Present Illness It was my pleasure to see Ms. Agustin in consultation today March 06, 2020. She is a very pleasant 39-year-old woman who is not known to our cardiology practice. She presents emergency department today with complaints of syncope. She states her syncopal spell started in October of this year. She describes it as when she sits up from a lying position she will get lightheaded and lose consciousness for a second or 2 and then quickly regained consciousness. When this occurs she denies any associated symptoms of chest pain, palpitations or shortness of breath. She was recently seen as an outpatient in [place] and was diagnosed with an inner ear issue. However, over the last 5 days her symptoms have significantly increased and now are happening very frequently. The episode this morning was more severe than previous when she actually felt numbness and tingling on the entire left side of her body prior to losing consc iousness. She states that prior to October she has never lost consciousness in her life. She denies any new medications or lifestyle changes. In the emergency department her work-up has been unremarkable, however, reviewing previous EKGs in our system does show a possible Brugada syndrome pattern and given this finding along with her syncope I recommended that she be admitted at least overnight. Allergies Allergy/AdvReac Type Severity Reaction Status Date / Time Iodinated Contrast Media Allergy Mild Hives Verified 03/06/20 14:22 Home Medications Home Medications Medication Instructions Recorded Confirmed Type azelastine 1 spray INTRANASAL BID 03/06/20 03/06/20 History dicyclomine 20 mg PO QID 03/06/20 03/06/20 History duloxetine 60 mg PO DAILY 03/06/20 03/06/20 History fluticasone propionate [Flonase 2 spray INTRANASAL DAILY 03/06/20 03/06/20 His tory Allergy Relief] loratadine [Claritin] 10 mg PO DAILY 03/06/20 03/06/20 History montelukast 10 mg PO DAILY 03/06/20 03/06/20 History nortriptyline 10 mg PO HS 03/06/20 03/06/20 History pantoprazole 40 mg PO DAILY 03/06/20 03/06/20 History trazodone 100 mg PO HS 03/06/20 03/06/20 History Patient History Medical History Anxiety delivery delivered (Resolved) Depression Kidney stones Ovarian tumor (Resolved 04/28/14) Right ovarian cyst (Resolved) Surgical History H/O: hysterectomy Family History Other Myocardial infarction Social History Preferred Language: Zambian Communication Ability: Effective Visual Impairment: No Limitations Hearing Ability: Normal Feels Safe at Home: Yes Smoking Status: Current every day smoker Review of Systems Review of Systems: All systems reviewed & are unremarkable except as noted in HPI & below Physical Exam Physical Exam: Physical Exam: General: Awake, alert and oriented x 3. No acute distress. HEENT: Normocephalic, atraumatic. Pupils equal, round and reactive to light and accommodation. Extraocular muscles are intact. Anicteric sclera. Moist mucous membranes. Neck: No JVD. No bruit. Cardiovascular: Regular. No S-4. Normal S-1 and S-2. No S-3. No murmurs, rubs or gallops. Pulmonary: Clear to auscultation bilaterally. No rales, rhonchi, or wheezing. Abdomen: Bowel sounds x 4, soft. No rebound, guarding or tenderness. No organomegaly. Extremities: No clubbing, cyanosis or edema. +2 pedal pulses bilaterally. Skin: Warm and dry. Results & Data ([facility]) Vital Signs (Past 12 Hours) Vital Signs Temp Pulse Pulse Resp BP BP Pulse Ox 03/06/20 16:30 66 18 100 03/06/20 16:20 59 L 20 100 03/06/20 16:10 65 20 100 03/06/20 16:00 63 19 150/100 H 100 03/06/20 15:50 62 18 100 03/06/20 15:40 60 13 100 03/06/20 15:30 74 28 H 100 03/06/20 15:20 66 15 100 03/06/20 15:19 69 20 100 03/06/20 15:18 69 15 100 03/06/20 15:16 71 13 99 03/06/20 14:30 100 03/06/20 14:29 123/90 100 03/06/20 14:28 100 03/06/20 14:26 147/85 H 100 03/06/20 14:20 100 03/06/20 14:10 100 03/06/20 14:00 100 03/06/20 13:50 100 03/06/20 13:49 124/84 99 03/06/20 13:43 74 18 124/84 99 03/06/20 12:05 37 C 90 18 133/86 100
[2020-03-06] MEDS: NICOTINE 7 MG/24 HR TDSY TD SCH (18:12)
[2020-03-06] MEDS: DICYCLOMINE HCL 20 MG TAB PO SCH ×2 (18:13→19:56)
--- NOTE | 2020-03-06 19:22 | Electrocardiogram Report ---
Test Reason : Blood Pressure : / mmHG Vent. Rate : 074 BPM Atrial Rate : 074 BPM P-R Int : 158 ms QRS Dur : 082 ms QT Int : 388 ms P-R-T Axes : 033 057 058 degrees QTc Int : 430 ms Poor data quality, interpretation may be adversely affected Normal sinus rhythm Normal ECG When compared with ECG of 16-NOV-2018 22:15, No significant change was found Confirmed by Davi Couch ([id number]) on 03/06/2020 7:22:15 PM Referred By: REFERRED SELF Confirmed By:Georges Couch
[2020-03-06] MEDS ORDERED: TRAZODONE HCL 100 MG TAB PO SCH (21:00)
[2020-03-06] MEDS ORDERED: MECLIZINE 12.5 MG TAB PO PRN (22:25)
[2020-03-07 06:12] LABS: Basophils # (auto) 0.04 K/uL (0-0.2); Basophils % (auto) 0.5 %; Eosinophils # (auto) 0.54 K/uL (0-0.5); Eosinophils % (auto) 6.9 %; Hematocrit (blood only) 39.1 % (37-47); Hemoglobin 12.9 g/dL (12.0-16.0); Immature Granulocytes # (auto) 0.01 K/uL (0.00-0.02); Immature Granulocytes % (auto) 0.1 %; Lymphocytes # (auto) 3.04 K/uL (1.2-3.4); Lymphocytes % (auto) 38.7 %; Mean Corpuscular Hemoglobin 31.2 pg (25-34); Mean Corpuscular Volume 94.4 fL (80-100); Mean Platelet Volume 11.6 fL (7.4-10.4); Monocytes % (auto) 7.6 %; Neutrophils # (auto) 3.62 K/uL (1.4-6.5); Neutrophils % (auto) 46.2 %; Platelet Count 247 K/uL (130-400); RDW Coefficient of Variation 13.7 % (11.5-14.5); RDW Standard Deviation 47.3 fL (36.4-46.3); Red Blood Count 4.14 M/uL (4.2-5.4); White Blood Count 7.85 K/uL (4.8-10.8)
[2020-03-07] MEDS: DICYCLOMINE HCL 20 MG TAB PO SCH ×2 (08:42→13:16)
[2020-03-07] MEDS: NICOTINE 7 MG/24 HR TDSY TD SCH (08:43)
[2020-03-07] MEDS ORDERED: LORATADINE 10 MG TAB PO SCH (09:00)
[2020-03-07] MEDS ORDERED: FLUTICASONE PROPIONATE NA SPR 16 GM BTL NAE SCH (09:00)
[2020-03-07] MEDS ORDERED: MONTELUKAST SODIUM 10 MG TABLET PO SCH (09:00)
[2020-03-07] MEDS ORDERED: DULOXETINE HCL 60 MG CAP PO SCH (09:00)
[2020-03-07] MEDS ORDERED: PANTOprazole 40 MG TAB PO SCH (09:00)
--- NOTE | 2020-03-07 10:44 | Cardiology Progress Note ---
Date of Service March 07, 2020 Assessment & Plan (1) Syncope: (2) Abnormal EKG: Believe the patient may be discharged to outpatient follow-up. I will arrange for an echocardiogram and long-term monitor for her as well as a follow- up appointment with electrophysiology for possible Brugada syndrome. Subjective The patient had an uneventful night. Telemetry indicates sinus mechanism and no significant arrhythmias. Review of Systems Review of Systems: All systems reviewed & are unremarkable except as noted in HPI & below Nothing additional to add. Physical Exam Physical Exam: General: no acute distress and stated age Head: normocephalic, no masses, lesions, tenderness or abnormalities Eyes: conjunctiva are pink and non-injected, sclera clear Neck: supple, no adenopathy, no bruits, normal jugular venous pulse, no hepatojugular reflux Chest: normal shape and normal respiratory effort Lungs: clear to auscultation and percussion Cardiac Exam: - regular rate & rhythm, no murmurs gallops or rubs - normal S1, normal S2 Pulses: 2(+) throughout Abdomen: abdomen soft, non-tender, no abnormal masses and no hepatosplenomegaly Musculoskeletal: no gait disturbance, no joint inflammation, no deforming arthritis Extremities: no edema and no cyanosis Neuro: grossly normal exam Results & Data Vital Signs (Past 12 Hours) Vital Signs Temp Pulse Pulse Resp BP BP Pulse Ox 03/07/20 10:31 55 L 03/07/20 08:11 36.7 C 61 18 123/79 99 03/07/20 03:58 36.6 C 69 17 114/71 98 03/07/20 00:00 72 03/06/20 23:26 36.5 C 62 16 123/64 97 Laboratory Results Laboratory Results - last 24 hr 03/06/20 03/06/20 03/06/20 13:20 13:20 14:30 WBC 8.25 RBC 4.76 Hgb 14.2 Hct 44.9 MCV 94.3 MCH 29.8 MCHC 31.6 L RDW Std Deviation 46.2 RDW Coeff of [place] 13.4 Plt Count 297 MPV 11.3 H Immature Gran % (Auto) 0.4 Neut % (Auto) 54.1 Lymph % (Auto) 30.8 [place] % (Auto) 7.8 Eos % (Auto) 6.2 Baso % (Auto) 0.7 Immature Gran # (Auto) 0.03 H Neut # (Auto) 4.47 Lymph # (Auto) 2.54 [place] # (Auto) 0.64 H Eos # (Auto) 0.51 H Baso # (Auto) 0.06 Sodium 139 Potassium 4.0 Chloride 109 H Carbon Dioxide 24 Anion Gap 6.0 BUN 14 Creatinine 0.97 Est Cr Clr Drug Dosing 79.1 Est GFR ( Amer) 85.3 Est GFR (Non-Af Amer) 73.6 BUN/Creatinine Ratio 14.3 Glucose 88 Calcium 9.5 Magnesium 2.0 Total Bilirubin 0.2 AST 15 ALT 30 Alkaline Phosphatase 108 Troponin I < 0.015 Total Protein 7.6 Albumin 3.8 Globulin 3.8 Albumin/Globulin Ratio 1.0 TSH 0.946 Urine Color Yellow Urine Appearance Clear Urine pH 8.5 H Ur Specific [place] 1.019 Urine Protein Negative Urine Glucose (UA) Negative Urine Ketones Negative Urine Blood Negative Urine Nitrite Negative Urine Bilirubin Negative Urine Urobilinogen Negative Ur Leukocyte Esterase Negative 03/07/20 05:09 WBC 7.85 RBC 4.14 L Hgb 12.9 Hct 39.1 MCV 94.4 MCH 31.2 MCHC 33.0 RDW Std Deviation 47.3 H RDW Coeff of [place] 13.7 Plt Count 247 MPV 11.6 H Immature Gran % (Auto) 0.1 Neut % (Auto) 46.2 Lymph % (Auto) 38.7 [place] % (Auto) 7.6 Eos % (Auto) 6.9 Baso % (Auto) 0.5 Immature Gran # (Auto) 0.01 Neut # (Auto) 3.62 Lymph # (Auto) 3.04 [place] # (Auto) 0.60 H Eos # (Auto) 0.54 H Baso # (Auto) 0.04 Sodium Potassium Chloride Carbon Dioxide Anion Gap BUN Creatinine Est Cr Clr Drug Dosing Est GFR ( Amer) Est GFR (Non-Af Amer) BUN/Creatinine Ratio Glucose Calcium Magnesium Total Bilirubin AST ALT Alkaline Phosphatase Troponin I Total Protein Albumin Globulin Albumin/Globulin Ratio TSH Urine Color Urine Appearance Urine pH Ur Specific [place] Urine Protein Urine Glucose (UA) Urine Ketones Urine Blood Urine Nitrite Urine Bilirubin Urine Urobilinogen Ur Leukocyte Esterase Medications Administered Current Inpatient Medications Acetaminophen (Tylenol) 650 mg PO Q4H PRN PRN Reason: Pain or Fever Stop: 04/05/20 16:54 Last Admin: 03/06/20 18:13 Dose: 650 mg Documented by: Dicyclomine HCl (Bentyl) 20 mg PO QID [facility] Stop: 04/05/20 16:59 Last Admin: 03/07/20 08:42 Dose: 20 mg Documented by: Duloxetine HCl (Cymbalta) 60 mg PO DAILY [facility] Stop: 04/06/20 08:59 Last Admin: 03/07/20 08:41 Dose: 60 mg Documented by: Fluticasone Propionate (Flonase) 2 sprays MING DAILY [facility] Stop: 04/06/20 08:59 Last Admin: 03/07/20 08:42 Dose: 2 sprays Documented by: Loratadine (Claritin) 10 mg PO DAILY [facility] Stop: 04/06/20 08:59 Last Admin: 03/07/20 08:41 Dose: 10 mg Documented by: Meclizine HCl (Antivert) 12.5 mg PO TID PRN PRN Reason: Vertigo Stop: 04/05/20 22:24 Miscellaneous (Remove Nicoderm Patch) 1 ea N/A DAILY@[id number] [facility] Stop: 04/06/20 08:58 Last Admin: 03/07/20 08:43 Dose: 1 ea Documented by: Miscellaneous (Order Awaiting Action) 1 ea N/A QS [facility] Stop: 04/06/20 00:00 Last Admin: 03/07/20 08:32 Dose: Not Given Documented by: Montelukast Sodium (Singulair) 10 mg PO DAILY [facility] Stop: 04/06/20 08:59 Last Admin: 03/07/20 08:41 Dose: 10 mg Documented by: Nicotine (Nicoderm Cq) 7 mg TD QAM [facility] Stop: 04/05/20 16:54 Last Admin: 03/07/20 08:43 Dose: 7 mg Documented by: Pantoprazole Sodium (Protonix) 40 mg PO DAILY [facility] Stop: 04/06/20 08:59 Last Admin: 03/07/20 08:41 Dose: 40 mg Documented by: Polyethylene Glycol (Miralax Powder Packet) 17 gm PO DAILY PRN PRN Reason: Constipation Stop: 04/05/20 16:54 Trazodone HCl (Desyrel) 100 mg PO HS [facility] Stop: 04/05/20 20:59 Last Admin: 03/06/20 19:56 Dose: 100 mg Documented by: (1) Syncope Syncope type: unspecified Qualified Code(s): R55 - Syncope and collapse
--- NOTE | 2020-03-07 11:32 | Electrocardiogram Report ---
Test Reason : Blood Pressure : / mmHG Vent. Rate : 061 BPM Atrial Rate : 061 BPM P-R Int : 156 ms QRS Dur : 084 ms QT Int : 424 ms P-R-T Axes : 035 063 053 degrees QTc Int : 426 ms Normal sinus rhythm Normal ECG When compared with ECG of 06-MAR-2020 13:43, No significant change was found Confirmed by Torito Cannon ([id number]) on 03/07/2020 11:31:34 AM Referred By: REFERRED SELF Confirmed By:Torito Cannon
--- NOTE | 2020-03-07 13:42 | Hospitalist Progress Note ---
Date of Service March 07, 2020 Assessment & Plan (1) Recurrent syncope: Etiology unknown CT head negative ECHO showed no valvular abnormality No further episode during hospital course Fall precaution Continue to hold Nortriptyline (2) Abnormal EKG: Present on admission with recurrent syncopal episodes x 5 days. Concern for underlying cardiac cause with previous EKGs showing a possible Brugada pattern Echo showed no significant valvular abnormality. LV ventricular systolic function is normal. Ejection fraction 55 to 60% Cardiology on board Telemetry indicates sinus mechanism and no significant arrhythmias. Recommended outpatient follow up with echocardiogram and long-term monitor for her as well as a follow-up appointment with electrophysiology for possible Brugada syndrome. Admitting team discussed multiple psych medications with psych LEONARD Hayes in case side effects are contributing-- plan to hold newest psych medication, Nortriptyline, to see if contributing to recurrent syncope Ok from cardiology standpoint to discharge home (3) Migraine headache: History of persistent migraine headaches for years CT head from today without intracranial abnormality Consider to add riboflavin outpatient, will defer to PCP Clinically improves (4) Anxiety: (5) Depression: Continue duloxetine and trazodone HS for sleep (6) Tobacco use disorder: Counseled on cessation. Nicotine patch ordered DVT Ppx: SCDs Code status: FULL PCP: Azael Castro Dispo: Will discharge home today Admission and Anticipated Discharge Date Admission Date: March 06, 2020 Subjective Pt was seen and examined Lying in bed with no distress eating lunch Pt said that she feels fine She said that she has not had any episode of syncope since yesterday She said that she does not have any headache as well today She said that she can tell when she is going to have an episode so that she can sit Denies any chest pain, palpitation, dizziness and SOB Physical Exam Physical Exam: General- No acute distress Head- atraumatic Eyes- PERRL, EOMI, ENT- oropharynx clear Neck- supple, no JVD Lungs- clear to auscultation Heart- regular rhythm; no murmur Abdomen- normal bowel sounds, soft, nontender Extremities- no calf tenderness Neuro- alert, oriented x 3; PERRL, EOMI; no facial palsy; no dysarthria Skin- warm & dry Results & Data Results & Data ([facility]) Vital Signs (Past 12 Hours) Vital Signs Temp Pulse Pulse Resp BP BP Pulse Ox 03/07/20 11:39 36.9 C 73 18 114/78 99 03/07/20 10:31 55 L 03/07/20 08:11 36.7 C 61 18 123/79 99 03/07/20 03:58 36.6 C 69 17 114/71 98
--- NOTE | 2020-03-08 08:53 | Discharge Summary ---
Date of Service March 07, 2020 Admission HPI Per Admitting Provider This is a 39-year-old F with PMH of MDD, chronic cervical and back pain, history of migraine headache, IBS and other medical problems listed below who presents with recurrent syncopal episodes x 5 days. Patient states that episodes began in October at which point she is evaluated at a hospital in [place] and told that it was an issue with her inner ear. Was told to follow-up when she returned to [place], but syncopal episodes resolved until 5 days ago. Patient states she can feel episode coming on due to headache, ringing in her ears and palpitations. She is able to sit down and then states eyes roll back and she is unresponsive for a few seconds, per family who has witnessed episodes. Endorses 4-5 these episodes daily with most recent one occurring prior to arrival. Denies any tongue biting, bowel or bladder incontinence during episode. No chest pain or shortness of breath. Was recently started on nortriptyline 1 month ago for IBS. Currently experiencing throbbing headache, which she admits to getting frequently and resolves with sleep. Does not take any medication for these besides Excedrin. Denies any fever, chills, lightheadedness, chest pain, shortness of breath, nausea, vomiting, abdominal pain, dysuria, diarrhea or constipation. Admission Exam Per Admitting Provider General Appearance: WD/WN, vitals as above, NAD, sitting up in bed, pleasant, conversing easily Head: normocephalic, atraumatic Eyes: normal inspection, PERRL, conjunctivae normal, anicteric sclerae ENT: external ear and nose normal, oropharynx normal Neck: trachea midline, no thyromegaly normal visual inspection Respiratory: normal respiratory effort, lungs clear to auscultation, no wheeze, rales, rhonchi. Normal insp/exp effort, no accessory muscle use Cardiovascular: regular rate, rhythm, no murmur appreciated, normal peripheral pulses. Vessels: no JVD or carotid bruit Chest: normal inspection of chest Abdomen/GI: normal bowel sounds, soft, nontender, no hepatosplenomegaly Extremities/Musculoskeletal: no cyanosis or clubbing, extremities motor strength 5/5 Neurologic: PERRL, EOMI, accommodation nl, no face palsy, no dysarthria, CN's II-XI intact bilaterally and moves all extremities Psychiatric: A+Ox3, euthymic affect Skin: no rashes, normal color, warm/dry Principal Diagnosis (1) Recurrent syncope: (2) Abnormal EKG: (3) Migraine headache: (4) Anxiety: (5) Depression: (6) Tobacco use disorder: Discharge Exam General- No acute distress Head- atraumatic Eyes- PERRL, EOMI, ENT- oropharynx clear Neck- supple, no JVD Lungs- clear to auscultation Heart- regular rhythm; no murmur Abdomen- normal bowel sounds, soft, nontender Extremities- no calf tenderness Neuro- alert, oriented x 3; PERRL, EOMI; no facial palsy; no dysarthria Skin- warm & dry Discharge Data Allergies Allergy/AdvReac Type Severity Reaction Status Date / Time Iodinated Contrast Media Allergy Mild Hives Verified 03/06/20 14:22 Consultations 03/06/20 15:21 ED Decision to Admit Stat 03/06/20 19:44 Consult Cardiology Routine Ordered Studies 03/06/20 13:09 CT head/brain wo con Stat XR chest 1V portable CLINICAL HISTORY: syncope dyspnea COMPARISON STUDY: 11/16/2018 FINDINGS: The bones soft tissues and hemidiaphragms are normal. The cardiomediastinal silhouette is normal. The lungs are clear. The pulmonary vasculature is normal. IMPRESSION: Negative chest. ACT 112: Negative or not required by law. The above report was generated using voice recognition software. It may contain grammatical, syntax or spelling errors. Electronically signed by: Darci Gutierrez M.D. 03/06/2020 1:45 PM Dictated: 03/06/20 1343 Transcribed: 03/06/[address] OF THE HEAD WITHOUT CONTRAST CLINICAL HISTORY: syncope COMPARISON STUDY: Head CT September 02, 2015. CT DOSE: 638.56 mGycm TECHNIQUE: Helical axial images of the head were obtained without IV contrast. Automated exposure control was utilized for the study. A dose lowering technique was utilized adhering to the principles of ALARA. FINDINGS: No acute intracranial hemorrhage, midline shift or mass effect is present. The ventricular system is unremarkable. The basilar cisterns are patent. No extra-axial collections are present. There are no findings to suggest acute dural sinus thrombosis or acute territorial infarct. No significant calvarial abnormalities are present. Visualized portions of the sinuses and mastoid air cells are clear. IMPRESSION: No acute intracranial findings. ACT 112: Negative or not required by law. Electronically signed by: Johnny Ness M.D. 03/06/2020 3:15 PM Dictated: 03/06/20 151 Transcribed: 03/06/20 1513 Hospital Course (1) Recurrent syncope: Etiology unknown CT head negative ECHO showed no valvular abnormality No further episode during hospital course Fall precaution Continue to hold Nortriptyline (2) Abnormal EKG: Present on admission with recurrent syncopal episodes x 5 days. Concern for underlying cardiac cause with previous EKGs showing a possible Brugada pattern Echo showed no significant valvular abnormality. LV ventricular systolic function is normal. Ejection fraction 55 to 60% Cardiology on board Telemetry indicates sinus mechanism and no significant arrhythmias. Recommended outpatient follow up with echocardiogram and long-term monitor for her as well as a follow-up appointment with electrophysiology for possible Brugada syndrome. Admitting team discussed multiple psych medications with psych LEONARD Hayes in case side effects are contributing-- plan to hold newest psych medication, Nortriptyline, to see if contributing to recurrent syncope Ok from cardiology standpoint to discharge home (3) Migraine headache: History of persistent migraine headaches for years CT head from today without intracranial abnormality Consider to add riboflavin outpatient, will defer to PCP Clinically improves (4) Anxiety: (5) Depression: Continue duloxetine and trazodone HS for sleep (6) Tobacco use disorder: Counseled on cessation. Nicotine patch ordered DVT Ppx: SCDs Code status: FULL PCP: Azael Castro Dispo: Will discharge home today Total Time Total Time Spent Total Time Spent (In Minutes): 35 minutes Total Time Includes: Examination of the Patient, Discharge Planning, Medication Reconciliation, Communication With Other Providers and Other Discharge Plan Discharge Items Patient Disposition: Home - Self-Care Reason For Visit: RECURRENT SYNCOPE Discharge Diagnosis: (1) Recurrent syncope: (2) Abnormal EKG: (3) Migraine headache: (4) Anxiety: (5) Depression: (6) Tobacco use disorder: Activity: Resume your previous activity Non-emergency contact: Primary Care Provider and Physician Intensivist Call non-emergency contact if: you have any medication questions Follow-up/Referrals: Nidhi Castro DO [Primary Care Provider] - Diet: Regular Addtl Attending Provider Instructions: Follow up with primary care provider Dr. Arnold (Dr. Castro colleague) on 03/09 @ 10AM Follow up with cardiology to arrange for referral for electrophysiology for possible Brugada syndrome evaluation Follow up with your psychiatry provider Counseling on smoking cessation Fall precaution Continue to hold the Nortriptyline Pending Studies at Discharge: No Stand-Alone Forms: [facility], Smoking Cessation Medications and DC Order Prescriptions: Continued trazodone 100 mg tablet 100 mg PO HS RF: 0 pantoprazole 40 mg tablet,delayed release (DR/EC) 40 mg PO DAILY RF: 0 montelukast 10 mg tablet 10 mg PO DAILY RF: 0 azelastine 137 mcg (0.1 %) aerosol,spray 1 spray INTRANASAL BID RF: 0 duloxetine 60 mg capsule,delayed release(DR/EC) 60 mg PO DAILY RF: 0 dicyclomine 20 mg tablet 20 mg PO QID RF: 0 fluticasone propionate [Flonase Allergy Relief] 50 mcg/actuation [place],Suspension 2 spray INTRANASAL DAILY RF: 0 loratadine [Claritin] 10 mg Tablet 10 mg PO DAILY RF: 0 Discontinued nortriptyline 10 mg capsule 10 mg PO HS RF: 0 Discharge Orders: Discharge Order (Routine); Ordered 03/07/20 Ordered By: James Vega Admission Data Admit Date/Time: 03/06/20 15:45 Attending Provider: James Vega Admit Provider: Jayant Guerra Primary Care Provider: Nidhi Castro Other Providers: Jayant Guerra ; Nicolas Brian ; Da Thomas ; Kilo Mcarthur ; Serafin Haro ; Amadeo Anderson ; Darci Washington ; Sherrell Bush ; Trinidad Moore ; Duglas Wills Other Interventions: Discharge Summary Assessment (RN) Last Done: 03/07/20 14:50 DC Date/Time DO NOT enter until pt leaves facility: 03/07/20 15:34
== END 2020-03-07 15:34 | disposition home or self-care (01) ==
LOC: ED 12:03 → 2S 12:03 → SUATTDRO 15:45 → 2S 16:30